=== PATIENT | male | born 1995 | race African-American/Black ===

== ENCOUNTER 2018-03-02 21:22 | Emergency (ER) | payer BC ==
[~2018-03-02] VITALS: Ht 165.1 cm; Wt 106.6 kg
[2018-03-02 21:31] VITALS: BP_SYST 141
== END 2018-03-02 22:48 | disposition left against medical advice (07) ==
LOC: SED 21:22
DX: H57.12 Ocular pain, left eye (principal); R51 Headache; J45.909 Unspecified asthma, uncomplicated; Z53.21 Procedure and treatment not carried out due to patient leaving prior to being seen by health care provider